=== PATIENT | male | born 1990 | race Caucasian/White ===

== ENCOUNTER 2016-12-28 01:37 | Emergency (ER) | payer BC ==
[~2016-12-28] VITALS: Ht 177.8 cm; Wt 80.0 kg
[2016-12-28 01:39] VITALS: BP 132/86; PULSE 71; RESP 16; TEMP 97.7; O2SAT 98
[2016-12-28] MEDS ORDERED: DICL75TA PO (02:21)
--- NOTE | 2016-12-28 02:24 | PD ---
HPI Chief Complaint: Injury Time Seen by Provider: 02:22 Travel History International Travel<30 days: No Contact w/Intl Traveler<30days: No Traveled to known affect area: No History of Present Illness HPI 26-year-old white male presents to emergency Department with right ankle pain after inversion injury getting out of his car this evening. He states that he had only mild discomfort initially but after going to sleep he woke up with throbbing severe pain. He is unable to bear weight. No alleviating factors. No other injury. PFSH Past Medical History Medical History: Denies Significant Hx Diminished Hearing: No Immunizations Current: Yes Tetanus Vaccination: < 5 Years Past Surgical History Narrative Surgical Lasix eye surgery Social History Alcohol Use: Yes (OCC) Tobacco Use: No Substance Use: No Allergies-Medications (Allergen,Severity, Reaction): Coded Allergies: No Known Allergies (Unverified , 12/28/16) Reported Meds & Prescriptions Reported Meds & Active Scripts Active Diclofenac Sodium DR (Diclofenac Sodium) 75 Mg Tabdr 75 Mg PO BID Review of Systems Except as stated in HPI: all other systems reviewed are Neg Musculoskeletal: Positive: Arthralgias, Limited ROM, Edema, Pain, No: Myalgias , Weakness Physical Exam Narrative GENERAL: This is a well-nourished, well-developed patient, in no apparent distress. SKIN: No rashes, ecchymoses or lesions. Warm and dry. HEAD: Atraumatic. Normocephalic. EYES: PERRL, EOMI, no discharge or injection. No scleral icterus. EARS: Clear NOSE: Nasal turbinates appear normal. THROAT: Mucosa pink and moist. Airway patent. NECK: Trachea midline. supple, moves head freely. LUNGS: Clear to auscultation. CV: Regular in rhythm. ABDOMEN: Soft nontender. EXT: No clubbing cyanosis. Examination the right lower extremity reveals pain to the anterior talar fibular ligament. There is mild swelling. The skin is intact. No pain over the heel, Achilles, mediolateral malleolus. Some mild discomfort in the proximal forefoot. No pain in the distal forefoot or toes. The skin is intact. Good sensation. Good pulses. Data Data Last Documented VS Vital Signs Date Time Temp Pulse Resp B/P Pulse Ox O2 Delivery O2 Flow Rate FiO2 12/28/16 01:39 97.7 71 16 132/86 98 Room Air Orders Ankle, Complete (Shl1aps) (12/28/16 02:20) Ice/Cold Pack (12/28/16 02:20) Splint Or Brace Apply/Monitor (12/28/16 02:20) Crutches (12/28/16 02:20) Acetamin-Hydrocod 325-5 Mg ([place] 5-325 (12/28/16 02:30) Ibuprofen (Motrin) (12/28/16 02:30) MDM Medical Decision Making Medical Screen Exam Complete: Yes Emergency Medical Condition: Yes Medical Record Reviewed: Yes Interpretation(s) Right ankle: Negative for acute fracture. Patient has a accessory ossicle or a old injury to the medial aspect of the ankle. Differential Diagnosis MDM: High Differential diagnoses: Fracture, sprain, strain, dislocation, contusion, neurovascular injury Narrative Course X-ray of the right ankle is negative for bony injury. Patient given Declan wrap, crutches, ice pack, Lortab 5 and Motrin 800 mg by mouth. X-ray of the ankle has a questionable accessory ossicle versus old injury versus fracture. The patient's pain is lateral and not medial. This is right ankle sprain Diagnosis Primary Impression: Right ankle sprain Qualified Code: S93.421A - Sprain of deltoid ligament of right ankle, initial encounter Patient Instructions: General Instructions, Narcotic given in the ED Departure Forms: Tests/Procedures, Work Release Special Instructions: No work 3 days. Additional Instructions: Rest. Elevation. Ice packs for the next 3 days. Declan wrap and crutches. No weight-bearing and then progress to weight-bearing as tolerated. Medications as directed Follow-up with an orthopedist or your doctor in one week. Return to the ER if any problems Med/Other Pt SpecificInfo: Prescription(s) given Scripts Diclofenac Sodium DR 75 Mg Tabdr75 Mg PO BID #20 TAB Prov:Swapna Eng MD 12/28/16 Disposition: 01 DISCHARGE HOME Condition: Stable Dhiraj Preciado Dec 28, 2016 02:24
[2016-12-28] MEDS ORDERED: IBUPROFEN 800 MG TAB PO ONE (02:30)
[2016-12-28] MEDS ORDERED: ACETAMINOPHEN/HYDROcodone 325 MG/5 MG TAB PO ONE (02:30)
--- NOTE | 2016-12-28 03:02 | RADRPT ---
EXAM DATE/TIME: 12/28/2016 02:39 [facility] COMPARISON: No previous studies available for comparison. INDICATIONS : Right ankle pain after fall. MEDICAL HISTORY : None. SURGICAL HISTORY : None. ENCOUNTER: Initial ACUITY: 1 day PAIN SCORE: 7/10 LOCATION: Right lateral ankle FINDINGS: Three view exam was performed of the right ankle. The bony structures are in normal alignment. . b utton shaped ossific fragment adjacent to the inferomedial aspect of the talus may represent an avuls ion injury versus accessory ossification. The ankle mortise is intact. No radiopaque foreign bodies are seen. Bony mineralization is normal. CONCLUSION: Avulsion injury versus accessory ossification along the inferomedial aspect of the talus. If patient has point tenderness along the medial aspect of the ankle, CT scan of the region may be useful for fu rther characterization. If the pain is more generalized or lateral, I do not feel further imaging is necessary. Pedro Og MD on December 28, 2016 at 2:57 Board Certified Radiologist. This report was verified electronically.
== END 2016-12-28 03:23 | disposition home or self-care (01) ==
LOC: NEPB 01:37
DX: S93.421A Sprain of deltoid ligament of right ankle, initial encounter (principal); X50.1XXA Overexertion from prolonged static or awkward postures, initial encounter; Y99.8 Other external cause status
CPT/HCPCS: 73610; 99283; E0113